=== PATIENT | male | born 1960 | race Caucasian/White ===

== ENCOUNTER 2025-01-15 07:36 | Emergency (ER) | payer BC, OTHER ==
--- NOTE | 2025-01-15 08:51 | RAD REPORT ---
EXAM: CT Head Brain Wo Cont HISTORY: Dizziness;Headache COMPARISON: None TECHNIQUE: Multiple contiguous axial images were obtained for a CT of the brain without contrast. Sag ittal and coronal reformats were performed. One or more of the following dose reduction techniques were used: Automated exposure control, adjus tment of the mA and kV according to patient size, and iterative reconstruction. Unless otherwise specified, incidental findings do not require dedicated imaging follow-up. FINDINGS: No evidence of hydrocephalus, intracranial hemorrhage, or extra-axial fluid collection. The brain is normal in morphology. The calvarium is intact. The visualized paranasal sinuses and mastoid air cells are essentially clear . IMPRESSION: No evidence of acute intracranial abnormality.
--- NOTE | 2025-01-15 08:58 | RAD REPORT ---
EXAMINATION: ONE VIEW CHEST XR CLINICAL INDICATION: Male, 64 years old.,CHEST PAIN TECHNIQUE: Frontal chest projection is submitted. Examination is limited by patient positioning and t echnique. COMPARISON: No prior exam. FINDINGS: The lungs are well inflated and clear. No pneumothorax or sizable effusion. The heart is normal in s ize. Mediastinal contours are unremarkable. IMPRESSION: No acute intrathoracic abnormalities.
[2025-01-15 09:17] LABS: Absolute Lymphocytes (CBC) 1.2 K/uL (0.7-4.9); Hematocrit 42.4 % (39.6-49.0); Hemoglobin 14.5 g/dL (13.6-17.9); MCH 28.6 pg (27.0-35.0); MCHC 34.2 g/dL (32.0-36.0); MCV 83.8 fL (80-100); MPV 7.6 fL (7.6-11.3); Nucleated RBC Absolute Count 0.0 (0-0); Nucleated Red Blood Cells % 0.1 % (0-0); RBC Red Blood Cell Count 5.05 M/uL (4.33-5.43); White Blood Count 5.20 thou/uL (4.3-10.9)
[2025-01-15 09:36] LABS: ALT/SGPT 34 U/L (16-61); AST/SGOT 13 U/L (15-37); Albumin 3.7 g/dL (3.4-5.0); Albumin/Globulin Ratio 1.1 (1.1-1.8); Alkaline Phosphatase 60 U/L (45-117); Anion Gap 9.1 mEq/L (5.0-15.0); BUN Blood Urea Nitrogen 15 mg/dL (7-18); Globulin 3.4 g/dL (2.3-3.5); Glucose Level 117 mg/dL (74-106); Magnesium 2.2 mg/dL (1.6-2.4); NT PRO-BNP 35 pg/mL (<125); Potassium 4.1 mEq/L (3.5-5.1); Troponin High Sensitivity 7.9 pg/mL (<58.9)
[2025-01-15 09:38] LABS: Bilirubin Indirect, Calculated 0.3 mg/dL (0.2-0.8)
--- NOTE | 2025-01-15 10:28 | EDPHYS ---
Physician Documentation [facility] Name: Bala Burris Age: 64 yrs Sex: Male : 1960 Arrival Date: 01/15/2025 Time: 07:36 Bed 2 Private MD: ED Physician Simone Jackson HPI: 01/15 16:26 This 64 yrs old Male presents to ER via Ambulatory with complaints of High Blood ms3 Pressure, Headache, Dizziness. 16:26 64-year-old male with past medical history of BPH presents to the emergency department ms3 increased blood pressure of 140/88, headache, dizziness, double vision that occurred yesterday afternoon. Patient states double vision has resolved. Patient states he is currently with some shortness of breath and mild chest tightness. Patient denies any alleviating or inciting factors.. Historical: - Allergies: 07:55 No Known Allergies; iw - PMHx: 07:55 BPH; iw - PSHx: 07:55 None; iw - Immunization history:: Adult Immunizations not up to date. - Infectious Disease History:: Denies. - Social history:: Smoking status: Patient denies any tobacco usage or history of. ROS: 16:26 Constitutional: Negative for fever, and chills. ms3 16:26 MS/Extremity: Negative for injury and deformity, Skin: Negative for injury, rash, and discoloration, 16:26 Eyes: Positive for visual disturbance, 16:26 Cardiovascular: Positive for chest pain, 16:26 Respiratory: Positive for shortness of breath, 16:26 Neuro: Positive for dizziness, Exam: 16:26 Constitutional: This is a well developed, well nourished patient who is awake, alert, ms3 and in no acute distress. Chest/axilla: Normal chest wall appearance and motion. Nontender with no deformity. Cardiovascular: Regular rate and rhythm with a normal S1 and S2. No gallops, murmurs, or rubs. Normal PMI, no JVD. No pulse deficits. Respiratory: Lungs have equal breath sounds bilaterally, clear to auscultation and percussion. No rales, rhonchi or wheezes noted. No increased work of breathing, no retractions or nasal flaring. Abdomen/GI: Soft, non-tender, with normal bowel sounds. No distension or tympany. No guarding or rebound. No evidence of tenderness throughout. Skin: Warm, dry with normal turgor. Normal color with no rashes, no lesions, and no evidence of cellulitis. MS/ Extremity: Pulses equal, no cyanosis. Neurovascular intact. Full, normal range of motion. Neuro: Awake and alert, GCS 15, oriented to person, place, time, and situation. Cranial nerves II-XII grossly intact. Motor strength 5/5 in all extremities. Sensory grossly intact. Cerebellar exam normal. Normal gait. 17:07 ECG was reviewed by the Attending Physician. ms3 Vital Signs: 07:54 BP 135 / 83; Pulse 75; Resp 16; Pulse Ox 96% on R/A; Weight 103.87 kg; Height 6 ft. 1 iw in. ; 08:00 BP 127 / 78; Pulse 68; Resp 18; Pulse Ox 96% on R/A; nh2 08:35 BP 124 / 96; Pulse 69; Resp 18; Pulse Ox 96% on R/A; nh2 09:25 BP 128 / 80; Pulse 57; Resp 19; Pulse Ox 93% on R/A; nh2 10:01 BP 120 / 84; Pulse 59; Resp 18; Pulse Ox 98% on 2 lpm NC; nh2 11:00 BP 130 / 84; Pulse 66; Resp 18; Pulse Ox 100% on R/A; nh2 07:54 Body Mass Index 30.21 (103.87 kg, 185.42 cm) iw MDM: 07:55 Medical Screening Exam initiated ms3 17:07 Differential diagnosis: intracerebral hemorrhage, Malignancy vs Mi. Data reviewed: ms3 vital signs, nurses notes, lab test result(s), EKG, radiologic studies, and as a result, I will discharge patient. Independent interpretation of the following test(s) in the Emergency Department CT Scan: My interpretation is CT head without contrast images reviewed by me did not reveal ICH. Scoring Tools HEART Score: History: Slightly Suspicious (0) ECG: Normal (0) Age: > 45 and < 65 years (1) Risk Factors: No Risk factors known (0) Troponin: < or = 1 x Normal limit (0) Total Score = 1. Counseling: I had a detailed discussion with the patient and/or guardian regarding the historical points, exam findings, and any diagnostic results supporting the discharge/admit diagnosis, lab results, radiology results, the need for outpatient follow up, to return to the emergency department if symptoms worsen or persist or if there are any questions or concerns that arise at home. Special discussion: Based on the patient's history, exam, and Dx evaluation, there is no indication for emergent intervention or inpatient Tx. It is understood by the patient/guardian that if the Sx's persist or worsen they need to return immediately for re-evaluation. ED course: Discussed imaging, labs with patient. Patient is neurologically intact, improved, alert and orient x 4, no apparent distress, nontoxic-appearing, speaking full sentences. Patient denies symptoms at this time. Patient to follow-up with Dr. Sanchez and Dr. Pedraza in 2 to 3 days. All questions were answered. Return precautions were discussed include worsening symptoms, or any other concerns. 01/15 07:58 Order name: Basic Metabolic Panel; Complete Time: 10:09 ms3 01/15 07:58 Order name: CBC with Diff; Complete Time: 10:09 ms3 01/15 07:58 Order name: LFT's; Complete Time: 10:09 ms3 01/15 07:58 Order name: Magnesium; Complete Time: 10:09 ms3 01/15 07:58 Order name: NT PRO-BNP; Complete Time: 10:09 ms3 01/15 07:58 Order name: Troponin HS; Complete Time: 10:09 ms3 01/15 07:58 Order name: XRAY Chest (1 view); Complete Time: 10:09 ms3 01/15 07:58 Order name: CT Head Brain wo Cont; Complete Time: 10:09 ms3 01/15 07:58 Order name: Cardiac monitoring; Complete Time: 08:31 ms3 01/15 07:58 Order name: EKG - Nurse/Tech; Complete Time: 08:31 ms3 01/15 07:58 Order name: IV Saline Lock; Complete Time: 08:31 ms3 01/15 07:58 Order name: Labs collected and sent; Complete Time: 08:31 ms3 01/15 07:58 Order name: O2 Per Protocol; Complete Time: 08:31 ms3 01/15 07:58 Order name: O2 Sat Monitoring; Complete Time: 08:31 ms3 EC:07 Rate is 69 beats/min. Rhythm is regular. QRS [place] is Normal. IA interval is normal. QRS ms3 interval is normal. Clinical impression: Normal ECG. Interpreted by me. Reviewed by me. Administered Medications: No medications were administered Disposition: 17:12 Chart complete. ms3 Disposition Summary: 01/15/25 10:28 Discharge Ordered Notes: Location: Home ms3 Condition: Stable ms3 Diagnosis - Elevated blood-pressure reading, without diagnosis of hypertension ms3 - Headache ms3 - Chest pain, unspecified ms3 Followup: ms3 - With: Fernando Pedraza MD - When: 2 - 3 days - Reason: Recheck today's complaints Followup: ms3 - With: Sergo Sanchez MD - When: 2 - 3 days - Reason: Re-evaluation by your physician Discharge Instructions: - Discharge Summary Sheet ms3 - Nonspecific Chest Pain, Adult ms3 - General Headache Without Cause ms3 - DASH Eating Plan ms3 - Form - Blood Pressure Record Sheet ms3 Forms: - Medication Reconciliation Form ms3 - Antibiotic Education ms3 - Prescription Opioid Use ms3 - Patient Portal Instructions ms3 - Leadership Thank You Letter ms3 Signatures: Dispatcher [employer] Marlena Pepe RN RN iw Simone Jackson DO DO ms3 Corrections: (The following items were deleted from the chart) 07:58 07:58 BASIC METABOLIC PANEL+C.LAB.BRZ ordered. EDMS EDMS 07:58 07:58 CBC+H.LAB.BRZ ordered. EDMS EDMS 07:58 07:58 HEPATIC FUNCTION+C.LAB.BRZ ordered. EDMS EDMS 07:58 07:58 MAGNESIUM+C.LAB.BRZ ordered. EDMS EDMS 07:58 07:58 PROBNP+C.LAB.BRZ ordered. EDMS EDMS 07:58 07:58 Troponin High Sensitivity+C.LAB.BRZ ordered. EDMS EDMS 07:58 07:58 Chest Single View+RAD.RAD.BRZ ordered. EDMS EDMS 07:58 07:58 Head Brain Wo Cont+CT.RAD.BRZ ordered. EDMS EDMS 17:08 16:26 Constitutional: This is a well developed, well nourished patient who is awake, ms3 alert, and in no acute distress. ms3
--- NOTE | 2025-01-15 10:28 | ER ---
Nurse's Notes [facility] Name: Bala Burris Age: 64 yrs Sex: Male : 1960 Arrival Date: 01/15/2025 Time: 07:36 Bed 2 Private MD: Diagnosis: Elevated blood-pressure reading, without diagnosis of hypertension;Headache;Chest pain, unspecified Presentation: 01/15 07:54 Coronavirus screen: At this time, the client does not indicate any symptoms associated iw with coronavirus-19. Ebola Screen: No symptoms or risks identified at this time. Initial Sepsis Screen: Does the patient meet any 2 criteria? No. Patient's initial sepsis screen is negative. Does the patient have a suspected source of infection? No. Patient's initial sepsis screen is negative. Risk Assessment: Do you want to hurt yourself or someone else? Patient reports no desire to harm self or others. 07:54 Acuity: ESPERANZA 3 iw 07:54 Method Of Arrival: Ambulatory iw 07:55 Chief complaint: Patient states: elevated BP, headache, double vision, started iw yesterday. 07:55 Onset of symptoms was January 14, 2025. iw Historical: - Allergies: 07:55 No Known Allergies; iw - PMHx: 07:55 BPH; iw - PSHx: 07:55 None; iw - Immunization history:: Adult Immunizations not up to date. - Infectious Disease History:: Denies. - Social history:: Smoking status: Patient denies any tobacco usage or history of. Screenin:12 [facility] ED Fall Risk Assessment (Adult) History of falling in the last 3 months, nh2 including since admission No falls in past 3 months (0 pts) Confusion or Disorientation No (0 pts) Intoxicated or Sedated No (0 pts) Impaired Gait No (0 pts) Mobility Assist Device Used No (0 pt) Altered Elimination Score/Fall Risk Level 0 - 2 = Low Risk Oriented to surroundings, Maintained a safe environment, Educated pt \T\ family on fall prevention, incl call for assistance when getting out of bed, Assessed \T\ reinforced patient's understanding of fall precautions. Abuse screen: Denies threats or abuse. Denies injuries from another. Nutritional screening: No deficits noted. Tuberculosis screening: No symptoms or risk factors identified. Assessment: 08:00 General: Appears in no apparent distress. Behavior is calm, cooperative, appropriate nh2 for age, Denies fever, feeling ill, fatigue. Pain: Complains of pain in HEAD Pain currently is 6 out of 10 on a pain scale. Quality of pain is described as aching, Pain began 1 day ago. Is intermittent. Neuro: Level of Consciousness is awake, alert, obeys commands, Oriented to person, place, time, situation, Appropriate for age Reports dizziness, headache. Cardiovascular: Denies chest pain, Patient's skin is warm and dry. Rhythm is sinus rhythm. Respiratory: Reports shortness of breath on exertion Airway is patent Trachea midline Respiratory effort is even, unlabored, Respiratory pattern is regular, symmetrical, Denies cough. GI: Abdomen is round obese, Patient currently denies diarrhea, nausea, vomiting. : No signs and/or symptoms were reported regarding the genitourinary system. Denies burning with urination. EENT: No signs and/or symptoms were reported regarding the EENT system. Derm: Skin is intact, Skin is pink, warm \T\ dry. Musculoskeletal: Circulation, motion, and sensation intact. Range of motion: intact in all extremities. 08:05 Reassessment: pt transported to CT via wheelchair. nh2 08:20 Reassessment: PT BACK FROM CT. nh2 09:15 Reassessment: Patient and/or family updated on plan of care and expected duration. Pain nh2 level reassessed. Patient is alert, oriented x 3, equal unlabored respirations, skin warm/dry/pink. pt reports feeling sob at rest, MD notified. 09:15 Pain: Complains of pain in head Pain currently is 4 out of 10 on a pain scale. Quality nh2 of pain is described as aching, Is intermittent. Vital Signs: 07:54 BP 135 / 83; Pulse 75; Resp 16; Pulse Ox 96% on R/A; Weight 103.87 kg; Height 6 ft. 1 iw in. ; 08:00 BP 127 / 78; Pulse 68; Resp 18; Pulse Ox 96% on R/A; nh2 08:35 BP 124 / 96; Pulse 69; Resp 18; Pulse Ox 96% on R/A; nh2 09:25 BP 128 / 80; Pulse 57; Resp 19; Pulse Ox 93% on R/A; nh2 10:01 BP 120 / 84; Pulse 59; Resp 18; Pulse Ox 98% on 2 lpm NC; nh2 11:00 BP 130 / 84; Pulse 66; Resp 18; Pulse Ox 100% on R/A; nh2 07:54 Body Mass Index 30.21 (103.87 kg, 185.42 cm) ED Course: 07:39 Patient arrived in ED. cj3 07:45 Simone Jackson DO is Attending Physician. ms3 07:55 Triage completed. iw 08:05 Client placed on continuous cardiac and pulse oximetry monitoring. NIBP monitoring nh2 applied. case monitor on. Pulse ox on. NIBP on. 08:12 CT Head Brain wo Cont In Process Unspecified. EDMS 08:12 Patient has correct armband on for positive identification. Bed in low position. Call nh2 light in reach. Side rails up X 1. Provided Education on: using call light for assistance. 08:24 XRAY Chest (1 view) In Process Unspecified. EDMS 08:30 No provider procedures requiring assistance completed. Inserted saline lock: 20 gauge nh2 in left antecubital area, using aseptic technique. Blood collected. Flushed with 10 mL NS. 08:31 Aubrey Haas Jr, RN is Primary Nurse. nh2 08:34 Arm band placed on right wrist. nh2 09:15 Oxygen administration via nasal cannula \T\ 2L/min. nh2 09:30 Door closed. Lights dimmed. Warm blanket given. nh2 10:27 Fernando Pedraza MD is Referral Physician. ms3 10:27 Sergo Sanchez MD is Referral Physician. ms3 11:00 IV discontinued, intact, bleeding controlled, No redness/swelling at site. Pressure nh2 dressing applied. Administered Medications: No medications were administered Medication: 08:34 VIS not applicable for this client. nh2 Outcome: 10:28 Discharge ordered by . ms3 11:01 Discharged to home ambulatory, nh2 11:01 Condition: good 11:01 Discharge instructions given to patient, Instructed on discharge instructions, follow up and referral plans. Demonstrated understanding of instructions, follow-up care, 11:01 Patient left the ED. nh2 Signatures: Dispatcher [employer] Marlena Pepe RN RN Simone Jackson DO DO ms3 Aubrey Haas Jr, RN RN nh2 Sherrie Downs cj3 Corrections: (The following items were deleted from the chart) 08:37 08:12 No provider procedures requiring assistance completed. nh2 nh2 08:37 08:12 Inserted saline lock: 20 gauge in left antecubital area, using aseptic technique. nh2 Blood collected. Flushed with 10 mL NS nh2 08:12 Patient maintains SpO2 saturation greater than 95% on room air. nh2 09:26 Reassessment: PT BACK FROM CT. nh2 08:00 Pain: Denies pain. nh2 09:25 BP 128 / 80; Pulse 57bpm; Resp 19bpm; Pulse Ox 95% RA; nh2 09:15 Reassessment: Patient and/or family updated on plan of care and expected nh2 duration. Pain level reassessed. Patient is alert, oriented x 3, equal unlabored respirations, skin warm/dry/pink. Patient denies pain at this time. 08:30 Patient maintains SpO2 saturation greater than 95% on room air. nh2 nh2
[2025-01-15 11:14] VITALS: BP 130/84; O2SAT 100
== END 2025-01-15 11:01 | disposition home or self-care (01) ==
LOC: ER 07:36
DX: R03.0 Elevated blood-pressure reading, without diagnosis of hypertension (principal); R51.9 Headache, unspecified; R07.89 Other chest pain
CPT/HCPCS: 36415; 70450; 71045; 80048; 80076; 83735; 83880; 84484; 85025; 93005; 99285